=== PATIENT | female | born 1950 | race Caucasian/White ===

== ENCOUNTER → 2016-07-13 | Outpatient (CLI) | payer OTHER | LOC: FIMAGING 08:01 | DX: Z12.31 Encounter for screening mammogram for malignant neoplasm of breast (principal) | CPT/HCPCS: G0202 ==

== ENCOUNTER 2016-10-15 16:58 | Emergency (ER) | payer OTHER ==
--- NOTE | 2016-10-15 18:28 | EDPHY ---
H & P Stated Complaint: R knee inj Time Seen by Provider: 10/15/16 18:18 HPI/ROS: CHIEF COMPLAINT: Right knee pain HISTORY OF PRESENT ILLNESS: The patient is a healthy 66-year-old female who is been hiking for the last couple of days. She complains of pain in her right anterior knee that hurts with weight-bearing. It does not hurt were not weight- bearing. She is able to bend and flex her knee without any difficulty. No swelling or deformity. No known trauma. No fever or infectious symptoms. REVIEW OF SYSTEMS: Constitutional: denies: chills, fever, recent illness, recent injury EENTM: denies: blurred vision, double vision, nose congestion Respiratory: denies: cough, shortness of breath Cardiac: denies: chest pain, irregular heart rate, lightheadedness, palpitations Gastrointestinal/Abdominal: denies: abdominal pain, diarrhea, nausea, vomiting, blood streaked stools Genitourinary: denies: dysuria, frequency, hematuria, pain Musculoskeletal: See HPI Skin: denies: lesions, rash, jaundice, bruising Neurological: denies: headache, numbness, paresthesia, tingling, dizziness, weakness Hematologic/Lymphatic: denies: blood clots, easy bleeding, easy bruising Immunologic/allergic: denies: HIV/AIDS, transplant EXAM: GENERAL: Well-appearing, well-nourished and in no acute distress. HEAD: Atraumatic, normocephalic. EYES: Pupils equal round and reactive to light, extraocular movements intact, sclera anicteric, conjunctiva are normal. ENT: TMs normal, nares patent, oropharynx clear without exudates. Moist mucous membranes. NECK: Normal range of motion, supple without lymphadenopathy or JVD. LUNGS: Breath sounds clear to auscultation bilaterally and equal. No wheezes rales or rhonchi. HEART: Regular rate and rhythm without murmurs, rubs or gallops. ABDOMEN: Soft, nontender, normoactive bowel sounds. No guarding, no rebound. No masses appreciated. BACK: No CVA tenderness, no spinal tenderness, step-offs or deformities EXTREMITIES: Right knee pain anterior laterally. No tenderness. No swelling. No erythema. No laxity with manipulation. No pain with grinding. The patient is currently able to ambulate without difficulty and states that her symptoms resolved. NEUROLOGICAL: Cranial nerves II through XII grossly intact. Normal speech, normal gait. 5/5 strength, normal movement in all extremities, normal sensation PSYCH: Normal mood, normal affect. SKIN: Warm, dry, normal turgor, no visible rashes or lesions. Source: Patient Exam Limitations: No limitations - Personal History Tetanus Vaccine Date: < 10 YEARS - Medical/Surgical History Hx Asthma: No Hx Chronic Respiratory Disease: No Hx Diabetes: No Hx Cardiac Disease: No Hx Renal Disease: No Hx Cirrhosis: No Hx Alcoholism: No Hx HIV/AIDS: No Hx Splenectomy or Spleen Trauma: No - Family History Significant Family History: No pertinent family hx - Social History Smoking Status: Never smoked Alcohol Use: Sober Drug Use: None Constitutional: Initial Vital Signs Temperature (C) 36.9 C 10/15/16 17:13 Heart Rate 77 10/15/16 17:13 Respiratory Rate 16 10/15/16 17:13 Blood Pressure 101/64 10/15/16 17:13 O2 Sat (%) 94 10/15/16 17:13 O2 Delivery Mode Room Air Allergies/Adverse Reactions: Penicillins Allergy (Mild, Verified 01/30/09 17:37) Hives Home Medications: Medication Instructions Recorded (None) 01/30/09 Estrogen,Con/M-Progest Acet 10/15/16 Medical Decision Making - Diagnostics Imaging Results: Imaging Impressions Knee X-Ray 10/15/16 18:27 Impression: Possible avulsion fracture of the tibial spine, age-indeterminate. If symptoms persist and clinical suspicion warrants, consider MRI. Findings discussed with RAMONA RODRIGUEZ 10/15/2016 at 19:24. Procedures: Procedure: Splint placement. A my Velcro knee straight leg splint was applied. After application of the splint I returned and re-examined the patient. The splint was adequately immobilizing the joint and distal to the splint the patient's circulation and sensation was intact. ED Course/Re-evaluation: The patient has intermittent knee joint pain. No tendon laxity. I suspect she has a meniscus injury. We will obtain x-rays to rule out fractures and place her in a straight leg splint to follow up with Orthopedics. 7:20 p.m. we discussed the x-ray results. I recommended she follow up with Orthopedics in 1 week to have an MRI and possibly scope. She understands and agrees with this plan. Differential Diagnosis: Partial list of the Differential diagnosis considered include but were not limited to; fracture, meniscus injury, ligamentous injury and although unlikely based on the history and physical exam, I also considered dislocation, nerve injury, vascular injury, DVT. I discussed these differential diagnoses and the plan with the patient as well as the usual and expected course. The patient understands that the diagnosis is provisional and that in medicine we are not always correct and that further workup is often warranted. Usual and customary warnings were given. All of the patient's questions were answered. The patient was instructed to return to the emergency department should the symptoms at all worsen or return, otherwise to followup with the physician as we discussed. Departure - Departure Disposition: Home, Routine, Self-Care Clinical Impression: Knee pain, right Qualifiers: Chronicity: acute Qualified Code(s): M25.561 - Pain in right knee Condition: Fair Instructions: Knee Pain (ED) Referrals: Mehreen Thapa MD [Primary Care Provider] - As per Instructions Dianelys Berg MD [Medical Doctor] - As per Instructions
[2016-10-15 19:39] VITALS: BP 116/72; PULSE 57; RESP 14; TEMP 98.2; O2SAT 97
== END 2016-10-15 19:39 | disposition home or self-care (01) ==
DX: M25.561 Pain in right knee (principal)
CPT/HCPCS: L1830

== ENCOUNTER → 2017-08-09 | Outpatient (CLI) | payer OTHER | LOC: FIMAGING 13:39 | PROVIDERS: ATTEND Internal Medicine | DX: Z12.31 Encounter for screening mammogram for malignant neoplasm of breast (principal); Z13.820 Encounter for screening for osteoporosis; Z78.0 Asymptomatic menopausal state; Z82.62 Family history of osteoporosis; Z79.890 Hormone replacement therapy ==

== ENCOUNTER → 2018-09-04 | Outpatient (CLI) | payer OTHER | LOC: FIMAGING 09:28 | PROVIDERS: ATTEND Internal Medicine | DX: Z12.31 Encounter for screening mammogram for malignant neoplasm of breast (principal) ==